=== PATIENT | female | born 1930 | race African-American/Black ===

== ENCOUNTER 2017-05-29 09:26 | Outpatient (CLI) | payer MEDICARE, OTHER ==
[2017-05-29 09:56] LABS: #Basophils 0.1 thou/uL (0.0-0.2); #Eosinphils 0.1 thou/uL (0.0-0.7); #Lymphocytes 2.2 thou/uL (1.20-3.40); #Monocytes 0.6 thou/uL (0.11-0.59); %Basophils 1.1 % (0.0-1.0); %Eosinophils 1.7 % (0.0-10.0); %Lymphocytes 31.5 % (21.0-51.0); %Neutrophils 56.7 % (42.0-75.0); Hemoglobin 10.4 g/dL (12.0-16.0); Mean Corpuscular HGB CONC 30.7 g/dL (32.0-36.0); Mean Corpuscular Hemoglobin 28.4 pg (27.0-31.0); Mean Corpuscular Volume 92.6 fl (81.0-99.0); Mean Platelet Volume 6.2 fL (7.4-10.4); Platelet Count 265 thou/uL (130-400); RBC Distribution Width 14.4 % (11.5-14.5); Red Blood Cell (RBC) Count 3.66 mill/uL (4.20-5.40)
[2017-05-29 10:13] LABS: ALT (SGPT) 11 U/L (8-55); AST (SGOT) 14 U/L (5-34); Albumin 3.5 g/dL (3.4-4.8); Alkaline Phosphatase 45 U/L (40-150); Anion Gap 14 mmol/L (10-20); BUN (Urea Nitrogen) 13 mg/dL (9.8-20.1); Bilirubin, Total 0.4 mg/dL (0.2-1.2); Calc. Creatinine Clearance 0 mL/min (70-130); Calcium 9.2 mg/dL (7.8-10.44); Carbon Dioxide 23 mmol/L (23-31); Cardiac Risk 4.8 (Less than 4.5); Chloride 103 mmol/L (98-107); Cholesterol 152 mg/dl (< 200 Desired); Estimated GFR-MDRD Greater than 90; Glucose 84 mg/dL (83-110); HDL Cholesterol 32 mg/dL (>60 Neg Risk); LDL Cholesterol, Calculated 94 mg/dL; Potassium 3.9 mmol/L (3.5-5.1); Protein, Total 6.5 g/dL (6.0-8.3); Sodium 136 mmol/L (136-145); Triglycerides 128 mg/dL (Less than 150)
== END 2017-05-29 09:27 | disposition home or self-care (01) ==
LOC: NAV LABSP 09:26
PROVIDERS: ATTEND Family Medicine
DX: I10 Essential (primary) hypertension (principal); I49.9 Cardiac arrhythmia, unspecified; Z95.0 Presence of cardiac pacemaker
CPT/HCPCS: 36415; 80053; 80061; 84443; 85025

== ENCOUNTER 2017-10-20 21:38 | Outpatient (CLI) | payer MEDICARE, OTHER | END 2017-10-20 21:39 | disposition home or self-care (01) | LOC: NAV NNR 21:38 → NAV LAB 21:38 → NAV NNR 21:39 | PROVIDERS: ATTEND Family Medicine | DX: J11.1 Influenza due to unidentified influenza virus with other respiratory manifestations (principal) ==

== ENCOUNTER 2018-09-05 10:37 | Emergency (ER) | payer MEDICARE, MEDICAID ==
[2018-09-05 11:50] LABS: CKMB 1.1 ng/mL (0-6.6); Troponin I 0.028 ng/mL (< 0.028)
[2018-09-05 11:52] LABS: Albumin 3.7 g/dL (3.4-4.8); Bilirubin, Total 0.5 mg/dL (0.2-1.2); Calcium 9.4 mg/dL (7.8-10.44); Globulin 4.1 g/dL (2.4-3.5); Potassium 4.3 mmol/L (3.5-5.1); Protein, Total 7.8 g/dL (6.0-8.3)
--- NOTE | 2018-09-05 11:56 | CT ---
CT BRAIN WITHOUT CONTRAST: HISTORY: Seizure. FINDINGS: There are changes of cortical atrophy and chronic small vessel ischemic disease. The ventricular siz e is appropriate, and the basilar cisterns are patent. No evidence of infarct, hemorrhage, midline s hift, or abnormal extraaxial fluid collections is seen. The bony calvarium is intact. There is muco miki disease in the paranasal sinuses. IMPRESSION: No CT evidence of acute intracranial process. POS: [facility]
[2018-09-05 11:58] LABS: Hemoglobin 12.6 g/dL (12.0-16.0); MDiff Complete? YES; Mean Corpuscular HGB CONC 30.4 g/dL (32.0-36.0); Mean Corpuscular Hemoglobin 28.6 pg (27.0-31.0); Mean Corpuscular Volume 93.9 fL (78.0-98.0); Mean Platelet Volume 6.8 fL (7.4-10.4); Platelet Count 281 thou/uL (130-400); White Blood Cell (WBC) Count 7.1 thou/uL (4.8-10.8)
[2018-09-05 11:59] LABS: Eosinophils 1 % (0-10); Lymphocytes 27 % (21-51); Monocytes 9 % (0-10); Neutrophil 63 % (42-75); PLT Morphology Comment Appears Adequate
--- NOTE | 2018-09-05 13:23 | RAD ---
SEMIUPRIGHT PORTABLE CHEST 1 VIEW: Date: 09/05/18 HISTORY: 88-year-old female with history of syncope. FINDINGS: Heart size is within normal limits. Left ICD. No confluent pneumonia, overt edema, or pleural effusio n. IMPRESSION: Left ICD. No acute intrathoracic disease. Atherosclerosis of aorta with ectasia. POS: [facility]
== END 2018-09-05 14:10 ==
LOC: NAV ERS 10:37
DX: R55 Syncope and collapse (principal); I25.10 Atherosclerotic heart disease of native coronary artery without angina pectoris; K21.9 Gastro-esophageal reflux disease without esophagitis; D50.9 Iron deficiency anemia, unspecified; E78.5 Hyperlipidemia, unspecified; I10 Essential (primary) hypertension; M81.0 Age-related osteoporosis without current pathological fracture; F03.90 Unspecified dementia, unspecified severity, without behavioral disturbance, psychotic disturbance, mood disturbance, and anxiety; Z79.899 Other long term (current) drug therapy; Z79.82 Long term (current) use of aspirin
CPT/HCPCS: 70450; 71045; 80053; 82553; 84484; 85025; 93005

== ENCOUNTER 2019-06-21 12:44 | Emergency (ER) | payer MEDICARE, MEDICAID ==
[2019-06-21 13:18] LABS: Hemoglobin 8.3 g/dL (12.0-16.0); Mean Corpuscular HGB CONC 31.5 g/dL (32.0-36.0); Mean Corpuscular Hemoglobin 29.4 pg (27.0-31.0); Mean Corpuscular Volume 93.2 fL (78.0-98.0); Mean Platelet Volume 6.4 fL (7.4-10.4); Platelet Count 255 thou/uL (130-400); RBC Distribution Width 15.1 % (11.5-14.5); Red Blood Cell (RBC) Count 2.82 mill/uL (4.20-5.40); White Blood Cell (WBC) Count 12.9 thou/uL (4.8-10.8)
[2019-06-21 13:20] LABS: ALT (SGPT) 57 U/L (8-55); AST (SGOT) 56 U/L (5-34); Albumin 2.2 g/dL (3.4-4.8); Alkaline Phosphatase 60 U/L (40-150); Anion Gap 24 mmol/L (10-20); BUN (Urea Nitrogen) 44 mg/dL (9.8-20.1); Bilirubin, Total 0.2 mg/dL (0.2-1.2); Calc. Creatinine Clearance 0 mL/min (70-130); Calcium 7.9 mg/dL (7.8-10.44); Carbon Dioxide 37 mmol/L (23-31); Chloride 113 mmol/L (98-107); Estimated GFR-MDRD 39; Globulin 2.9 g/dL (2.4-3.5); Glucose 297 mg/dL (83-110); Potassium 6.1 mmol/L (3.5-5.1); Protein, Total 5.1 g/dL (6.0-8.3)
[2019-06-21 13:21] LABS: Anisocytosis SLIGHT = 6-15 cells (100X) (0-5/hpf); Eosinophils 1 % (0-10); Hypochromia SLIGHT = 6-15 cells (100X) (0-5/hpf); Lymphocytes 45 % (21-51); MDiff Complete? YES; Monocytes 3 % (0-10); Neutrophil 51 % (42-75); Platelet Morphology Comment Appears Adequate
[2019-06-21] MEDS ORDERED: Sodium Chloride 0.9% 1,000 ML ONE (13:30)
[2019-06-21 13:37] LABS: Sodium 168 mmol/L (136-145)
== END 2019-06-21 16:41 | disposition expired ==
LOC: NAV ERS 12:44
DX: I46.9 Cardiac arrest, cause unspecified (principal); I49.9 Cardiac arrhythmia, unspecified; I25.10 Atherosclerotic heart disease of native coronary artery without angina pectoris; K21.9 Gastro-esophageal reflux disease without esophagitis; D50.9 Iron deficiency anemia, unspecified; E78.5 Hyperlipidemia, unspecified; E78.00 Pure hypercholesterolemia, unspecified; I10 Essential (primary) hypertension; F03.91 Unspecified dementia, unspecified severity, with behavioral disturbance
CPT/HCPCS: 36415; 80053; 84484; 85025; 92950; 94760; 96374; 96375; J7050